=== PATIENT | male | born 1940 | race Caucasian/White ===

== ENCOUNTER 2017-10-20 09:46 | Inpatient (IN) | payer OTHER ==
[2017-10-20] MEDS ORDERED: ASPIRIN 81 MG CHEWABLE TABLET ONE (10:43)
--- NOTE | 2017-10-20 11:07 | RAD REPORT ---
EXAM DESCRIPTION: RAD - Chest Single View - 10/20/2017 10:51 am CLINICAL HISTORY: Chest pain. COMPARISON: 11/14/2016 FINDINGS: Portable technique limits examination quality. The lungs are grossly clear. The heart is normal in size. No displaced fractures.Left-sided port cath eter its tip in the SVC. IMPRESSION: No acute intrathoracic process suspected.
[2017-10-20 11:11] LABS: Absolute Lymphocytes (CBC) 1.1 K/uL (0.7-4.9); Absolute Monocytes 0.8 K/uL (0.1-1.3); Absolute Neutrophil 6.9 K/uL (1.8-8.0); Basophils % 0.8 % (0-1.3); Eosinophils % 1.4 % (0-4.4); Hematocrit 42.2 % (39.6-49.0); MCH 29.6 pg (27.0-35.0); MCV 90.3 fL (80-100); MPV 9.4 fL (7.6-11.3); Monocytes % 9.1 % (3.3-12.3); RBC Red Blood Cell Count 4.67 M/uL (4.33-5.43)
[2017-10-20 11:23] LABS: Protime INR 1.19
[2017-10-20 11:37] LABS: CKMB Creatine Kinase MB 1.1 ng/ml (0.3-4.0); Potassium 4.6 mEq/L (3.6-5.0)
[2017-10-20 11:43] LABS: Albumin 3.4 g/dL (3.2-5.5); Bilirubin Direct 0.1 mg/dL (0-0.2); Bilirubin Total 0.7 mg/dL (0.3-1.2); Magnesium 1.7 mg/dL (1.8-2.5); Protein, Total 7.2 g/dL (6.0-8.3)
[2017-10-20] MEDS ORDERED: INSULIN -REGULAR HUMAN 50 UNIT/0.5 ML ML ONE (12:28)
--- NOTE | 2017-10-20 13:14 | ER ---
Nurse's Notes [facility] Name: Robb Pennington Age: 77 yrs Sex: Male : 1940 Arrival Date: 10/20/2017 Time: 09:48 Bed 8 Private MD: Diagnosis: Cellulitis of right lower limb;Open wound of foot;Hyperglycemia, unspecified;Chest pain, unspecified Presentation: 10/20 09:52 Presenting complaint: Patient states: Chest pain that started last night while patient aj was getting up and down to the bathroom with urinary frequency. Describes pain as "minor, it bugs me.". Transition of care: patient was not received from another setting of care. Onset of symptoms was October 20, 2017. Initial Sepsis Screen: Does the patient meet any 2 criteria? No. Patient's initial sepsis screen is negative. Does the patient have a suspected source of infection? No. Patient's initial sepsis screen is negative. Care prior to arrival: None. 09:52 Method Of Arrival: Wheelchair aj 09:52 Acuity: LUDA 3 aj Triage Assessment: 09:54 General: Appears in no apparent distress. comfortable, Behavior is calm, cooperative, aj appropriate for age. Pain: Complains of pain in chest. Neuro: Level of Consciousness is awake, alert, obeys commands, Oriented to person, place, time, situation, Appropriate for age. Cardiovascular: Reports chest pain. Respiratory: Airway is patent Respiratory effort is even, unlabored, Respiratory pattern is regular, symmetrical. : Reports urinary frequency. Derm: Skin is intact, is healthy with good turgor, Skin is pink, warm \\T\\ dry. normal. Historical: - Allergies: 09:54 pollen extracts; aj - Home Meds: 09:54 aspirin 325 mg Oral tab once daily [Active]; clopidogrel 75 mg Oral tab 1 tab once aj daily [Active]; Melatonin Oral [Active]; metoprolol tartrate 37.5 mg Oral tab 2 times per day [Active]; Novolog 100 unit/mL Sub-Q soln 6 unit three times a day [Active]; simvastatin 40 mg Oral tab 1 tab once daily [Active]; Tresiba FlexTouch U-100 100 unit/mL (3 mL) subcutaneous inpn 100 unit daily [Active]; - PMHx: 09:54 colon cancer; CVA; Diabetes - IDDM; Hyperlipidemia; Hypertension; TIA; aj - PSHx: 09:54 Appendectomy; Cholecystectomy; colon cancer; aj - Immunization history:: Adult Immunizations up to date. - Social history:: Smoking status: Patient/guardian denies using tobacco. Screenin:00 Abuse screen: Denies threats or abuse. Denies injuries from another. Nutritional hb screening: No deficits noted. Tuberculosis screening: No symptoms or risk factors identified. Fall Risk Total Chow Fall Scale indicates Low Risk Score (25-44 pts). Fall prevention measures have been instituted. Side Rails Up X 2 Frequent Obs/Assesments occuring Family Present and informed to notify staff if they need to leave bedside As available Patient and Family Educated on Fall Prevention Program and strategies. Assessment: 09:55 General: see triage assessment. hb 10:15 Derm: Skin temperature is hot Wound noted Wound is s/s of infection noted, with redness sg extending up the right leg. 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 10:45 Reassessment: Patient appears in no apparent distress at this time. No changes from hb previously documented assessment. Patient and/or family updated on plan of care and expected duration. Pain level reassessed. Patient is alert, oriented x 3, equal unlabored respirations, skin warm/dry/pink. 11:30 Reassessment: Patient appears in no apparent distress at this time. No changes from hb previously documented assessment. Patient and/or family updated on plan of care and expected duration. Pain level reassessed. Patient is alert, oriented x 3, equal unlabored respirations, skin warm/dry/pink. 12:30 Reassessment: Patient appears in no apparent distress at this time. No changes from hb previously documented assessment. Patient and/or family updated on plan of care and expected duration. Pain level reassessed. Patient is alert, oriented x 3, equal unlabored respirations, skin warm/dry/pink. 13:30 Reassessment: Patient appears in no apparent distress at this time. No changes from hb previously documented assessment. Patient and/or family updated on plan of care and expected duration. Pain level reassessed. Patient is alert, oriented x 3, equal unlabored respirations, skin warm/dry/pink. 14:30 Reassessment: Patient appears in no apparent distress at this time. No changes from hb previously documented assessment. Patient and/or family updated on plan of care and expected duration. Pain level reassessed. Patient is alert, oriented x 3, equal unlabored respirations, skin warm/dry/pink. 15:30 Reassessment: Patient appears in no apparent distress at this time. No changes from hb previously documented assessment. Patient and/or family updated on plan of care and expected duration. Pain level reassessed. Patient is alert, oriented x 3, equal unlabored respirations, skin warm/dry/pink. 16:15 Reassessment: Patient appears in no apparent distress at this time. No changes from hb previously documented assessment. Patient and/or family updated on plan of care and expected duration. Pain level reassessed. Patient is alert, oriented x 3, equal unlabored respirations, skin warm/dry/pink. Vital Signs: 09:54 BP 150 / 71; Pulse 108; Resp 22; Temp 99.0; Pulse Ox 96% on R/A; Weight 117.93 kg; aj Height 6 ft. 2 in. (187.96 cm); 11:25 BP 161 / 67; Pulse 90; Resp 21; Pulse Ox 97% on 2 lpm NC; hb 13:00 BP 158 / 88; Pulse 84; Resp 18; Pulse Ox 96% on 2 lpm NC; hb 14:00 BP 132 / 76; Pulse 88; Resp 15; Pulse Ox 97% on 2 lpm NC; hb 15:00 BP 146 / 86; Pulse 86; Resp 15; Pulse Ox 100% on 2 lpm NC; hb 16:00 BP 156 / 86; Pulse 88; Resp 20; Pulse Ox 97% 2 lpm ; hb 09:54 Body Mass Index 33.38 (117.93 kg, 187.96 cm) aj ED Course: 09:48 Patient arrived in ED. sb2 09:53 Triage completed. aj 09:54 Arm band placed on right wrist. Patient placed in an exam room. aj 09:59 Carolyn Banegas FNP-C is PHCP. kb 09:59 Raymon Peña MD is Attending Physician. kb 10:00 Patient has correct armband on for positive identification. Placed in gown. Bed in low hb position. Call light in reach. Side rails up X 1. cofounder on. Pulse ox on. NIBP on. 10:00 Oxygen administration via nasal cannula \\T\\ 2L/min. hb 10:29 Alfred Nazario, RN is Primary Nurse. sg 10:36 EKG done, by waste management recycling technician. reviewed by Raymon Peña MD. dt2 10:52 XRAY Chest (1 view) In Process Unspecified. EDMS 13:13 Epi Hrading MD is Hospitalizing Provider. kb 13:39 Wound Culture Sent. hb 14:58 No provider procedures requiring assistance completed. Patient admitted, IV remains in hb place. 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 kb 14:58 Admitted to Med/surg accompanied by tech, via stretcher, room 215, with chart, Report hb called to SUSSY Lawrence 14:58 Condition: stable 14:58 Instructed on the need for admit, Demonstrated understanding of instructions. 16:24 Patient left the ED. sg Signatures: Dispatcher [employer] EDMS Carolyn Banegas, DIRECTOR OF CARDIAC REHABILITATION-C DIRECTOR OF CARDIAC REHABILITATION-Ckb Alfred Nazario, RN SUSSY Rosario Vasquez RN RN aj Baxter, Heather, RN RN Jeniffer Gomes sb2 Julia Ya dt2 Catherine Adkins RN
--- NOTE | 2017-10-20 13:14 | EDPHYS ---
Physician Documentation [facility] Name: Robb Pennington Age: 77 yrs Sex: Male : 1940 Arrival Date: 10/20/2017 Time: 09:48 Bed 8 Private MD: ED Physician Raymon Peña HPI: 10/20 10:03 This 77 yrs old Male presents to ER via Wheelchair with complaints of Chest kb Pain. 10:07 The patient or guardian reports chest pain that is located primarily in the substernal kb area. Onset: last night. The pain does not radiate. Associated signs and symptoms: Pertinent positives: shortness of breath, Pertinent negatives: abdominal pain, cough, diaphoresis, dizziness, headache, lower extremity pain, lower extremity swelling, lightheadedness, nausea, near syncope, palpitations, recent travel, syncope, vomiting. The chest pain is described as aching. Duration: The patient or guardian reports a single episode, that is now resolved. Modifying factors: The symptoms are alleviated by nothing. the symptoms are aggravated by nothing. Severity of pain: At its worst the pain was moderate in the emergency department the pain is unchanged. The patient has experienced similar episodes in the past, a few times. The patient has not recently seen a physician. Historical: - Allergies: 09:54 pollen extracts; aj - Home Meds: 09:54 aspirin 325 mg Oral tab once daily [Active]; clopidogrel 75 mg Oral tab 1 tab once aj daily [Active]; Melatonin Oral [Active]; metoprolol tartrate 37.5 mg Oral tab 2 times per day [Active]; Novolog 100 unit/mL Sub-Q soln 6 unit three times a day [Active]; simvastatin 40 mg Oral tab 1 tab once daily [Active]; Tresiba FlexTouch U-100 100 unit/mL (3 mL) subcutaneous inpn 100 unit daily [Active]; - PMHx: 09:54 colon cancer; CVA; Diabetes - IDDM; Hyperlipidemia; Hypertension; TIA; aj - PSHx: 09:54 Appendectomy; Cholecystectomy; colon cancer; aj - Immunization history:: Adult Immunizations up to date. - Social history:: Smoking status: Patient/guardian denies using tobacco. ROS: 10:04 Constitutional: Negative for fever, chills, and weight loss, ENT: Negative for injury, kb pain, and discharge, Neck: Negative for injury, pain, and swelling, Abdomen/GI: Negative for abdominal pain, nausea, vomiting, diarrhea, and constipation, Back: Negative for injury and pain, : Negative for injury, bleeding, discharge, and swelling, MS/Extremity: Negative for injury and deformity, Skin: Negative for injury, rash, and discoloration, Neuro: Negative for headache, weakness, numbness, tingling, and seizure. 10:04 Cardiovascular: Positive for chest pain, Negative for edema, orthopnea, palpitations, paroxysmal nocturnal dyspnea. 10:04 Respiratory: Positive for shortness of breath, Negative for cough, dyspnea on exertion, hemoptysis, orthopnea, pleurisy, sputum production, wheezing. Exam: 10:04 Constitutional: This is a well developed, well nourished patient who is awake, alert, kb and in no acute distress. Head/Face: Normocephalic, atraumatic. Chest/axilla: Normal chest wall appearance and motion. Nontender with no deformity. No lesions are appreciated. Cardiovascular: Regular rate and rhythm with a normal S1 and S2. No gallops, murmurs, or rubs. Normal PMI, no JVD. No pulse deficits. Respiratory: Lungs have equal breath sounds bilaterally, clear to auscultation and percussion. No rales, rhonchi or wheezes noted. No increased work of breathing, no retractions or nasal flaring. Abdomen/GI: Soft, non-tender, with normal bowel sounds. No distension or tympany. No guarding or rebound. No evidence of tenderness throughout. Back: No spinal tenderness. No costovertebral tenderness. Full range of motion. MS/ Extremity: Pulses equal, no cyanosis. Neurovascular intact. Full, normal range of motion. Neuro: Awake and alert, GCS 15, oriented to person, place, time, and situation. Cranial nerves II-XII grossly intact. Motor strength 5/5 in all extremities. Sensory grossly intact. Cerebellar exam normal. Normal gait. 12:38 Skin: cellulitis, that is moderate, on the right foot, open wound at bottom of right kb foot with purulent drainage. , lesion(s). Vital Signs: 09:54 BP 150 / 71; Pulse 108; Resp 22; Temp 99.0; Pulse Ox 96% on R/A; Weight 117.93 kg; aj Height 6 ft. 2 in. (187.96 cm); 11:25 BP 161 / 67; Pulse 90; Resp 21; Pulse Ox 97% on 2 lpm NC; hb 13:00 BP 158 / 88; Pulse 84; Resp 18; Pulse Ox 96% on 2 lpm NC; hb 14:00 BP 132 / 76; Pulse 88; Resp 15; Pulse Ox 97% on 2 lpm NC; hb 15:00 BP 146 / 86; Pulse 86; Resp 15; Pulse Ox 100% on 2 lpm NC; hb 16:00 BP 156 / 86; Pulse 88; Resp 20; Pulse Ox 97% 2 lpm ; hb 09:54 Body Mass Index 33.38 (117.93 kg, 187.96 cm) aj MDM: 09:59 Patient medically screened. kb 10:04 The patient was given aspirin in the Emergency Department. Data reviewed: vital signs, kb nurses notes. Data interpreted: Pulse oximetry: on room air is 96 %. Interpretation: normal. 12:29 Counseling: I had a detailed discussion with the patient and/or guardian regarding: the kb historical points, exam findings, and any diagnostic results supporting the discharge/admit diagnosis, lab results, radiology results, the need for further work-up and treatment in the hospital. Physician consultation: Epi Harding MD was called at 12:30, left voicemail and awaiting call back. 13:12 Physician consultation: Epi Harding MD was contacted at 13:12, regarding admission, kb to the telemetry unit. patient's condition, and will see patient in inpatient room. 10/20 10:03 Order name: LFT's; Complete Time: 11:46 kb 10/20 10:03 Order name: Basic Metabolic Panel; Complete Time: 11:46 kb 10/20 10:03 Order name: BNP; Complete Time: 11:37 kb 10/20 10:03 Order name: CBC with Diff; Complete Time: 11:28 kb 10/20 10:03 Order name: Ckmb; Complete Time: 11:46 kb 10/20 10:03 Order name: CPK; Complete Time: 11:46 kb 10/20 10:03 Order name: Magnesium; Complete Time: 11:46 kb 10/20 10:03 Order name: PT-INR; Complete Time: 11:37 kb 10/20 10:03 Order name: Ptt, Activated; Complete Time: 11:37 kb 10/20 10:03 Order name: Troponin (emerg Dept Use Only); Complete Time: 11:37 kb 10/20 10:03 Order name: XRAY Chest (1 view); Complete Time: 11:18 kb 10/20 12:38 Order name: Blood Culture Adult (2) kb 10/20 12:38 Order name: Wound Culture kb 10/20 12:47 Order name: Urine Dipstick--Ancillary (enter results); Complete Time: 16:05 bd 10/20 10:03 Order name: EKG; Complete Time: 10:04 kb 10/20 10:03 Order name: Cardiac monitoring; Complete Time: 10:52 kb 10/20 10:03 Order name: EKG - Nurse/Tech; Complete Time: 13:24 kb 10/20 10:03 Order name: IV Saline Lock; Complete Time: 10:53 kb 10/20 10:03 Order name: Labs collected and sent; Complete Time: 10:53 kb 10/20 10:03 Order name: O2 Per Protocol; Complete Time: 10:53 kb 10/20 10:03 Order name: O2 Sat Monitoring; Complete Time: 10:53 kb 10/20 10:03 Order name: Urine Dipstick-Ancillary (obtain specimen); Complete Time: 13:24 kb 10/20 12:59 Order name: Diet Ada 1800 Serafin; Complete Time: 12:59 bd 10/20 13:12 Order name: Foot Right 3 View XRAY kb 10/20 14:14 Order name: RAD; Complete Time: 14:15 EDMS Administered Medications: 10:52 Not Given (Patient Refused; pt 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 taking 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, w/plavix): Aspirin Chewable sg Tablet 324 mg PO once; 81 mg tablets x 4 12:31 Drug: Insulin Regular Human 10 units {Co-Signature: hb (Catherine Adkins RN).} Route: sg IVP; Site: right antecubital; 13:10 Drug: Zosyn 3.375 grams Route: IVPB; Infused Over: 60 mins; Site: right antecubital; hb 14:10 Follow up: Response: No adverse reaction; IV Status: Completed infusion hb 14:23 Drug: vancoMYCIN 1 grams Route: IVPB; Infused Over: 2 hrs; Site: right antecubital; hb Disposition: 10/21 10:53 Co-signature as Attending Physician, Raymon Peña MD I agree with the assessment and [facility] plan of care. Disposition: 10/20/17 13:14 Hospitalization ordered by Epi Harding for Inpatient Admission. Preliminary diagnosis are Cellulitis of right lower limb, Open wound of foot, Hyperglycemia, unspecified, Chest pain, unspecified. - Bed requested for Telemetry/MedSurg (Inpatient). - Status is Inpatient Admission. sg - Condition is Stable. - Problem is new. - Symptoms are unchanged. UTI on Admission? No Signatures: Dispatcher [employer] EDMS Carolyn Banegas, LUNCHROOM MOTHER-C LUNCHROOM MOTHER-Naya Carmichael RN Alfred Canas RN RN sg Myers, Amanda, RN RN aj Anderson, Corey, MD MD cha Baxter, Heather, RN RN Catherine pratt Corrections: (The following items were deleted from the chart) 10/20 10:08 10:07 The patient has not experienced similar symptoms in the past, kb kb 12:27 10:04 Constitutional: This is a well developed, well nourished patient who is awake, kb alert, and in no acute distress. Head/Face: Normocephalic, atraumatic. Chest/axilla: Normal chest wall appearance and motion. Nontender with no deformity. No lesions are appreciated. Cardiovascular: Regular rate and rhythm with a normal S1 and S2. No gallops, murmurs, or rubs. Normal PMI, no JVD. No pulse deficits. Respiratory: Lungs have equal breath sounds bilaterally, clear to auscultation and percussion. No rales, rhonchi or wheezes noted. No increased work of breathing, no retractions or nasal flaring. Abdomen/GI: Soft, non-tender, with normal bowel sounds. No distension or tympany. No guarding or rebound. No evidence of tenderness throughout. Back: No spinal tenderness. No costovertebral tenderness. Full range of motion. Skin: Warm, dry with normal turgor. Normal color with no rashes, no lesions, and no evidence of cellulitis. MS/ Extremity: Pulses equal, no cyanosis. Neurovascular intact. Full, normal range of motion. Neuro: Awake and alert, GCS 15, oriented to person, place, time, and situation. Cranial nerves II-XII grossly intact. Motor strength 5/5 in all extremities. Sensory grossly intact. Cerebellar exam normal. Normal gait. kb 13:23 13:14 Hospitalization Ordered by Epi Harding MD for Inpatient Admission. Preliminary dw diagnosis is Cellulitis of right lower limb; Open wound of foot; Hyperglycemia, unspecified; Chest pain, unspecified. Bed requested for Telemetry/MedSurg (Inpatient). Status is Inpatient Admission. Condition is Stable. Problem is new. Symptoms are unchanged. UTI on Admission? No. kb 16:24 13:23 10/20/2017 13:14 Hospitalization Ordered by Epi Harding MD for Inpatient sg Admission. Preliminary diagnosis is Cellulitis of right lower limb; Open wound of foot; Hyperglycemia, unspecified; Chest pain, unspecified. Bed requested for Telemetry/MedSurg (Inpatient). Status is Inpatient Admission. Condition is Stable. Problem is new. Symptoms are unchanged. UTI on Admission? No. dw
[2017-10-20] MEDS ORDERED: NS ONE (13:26)
[2017-10-20] MEDS ORDERED: VANCOMYCIN ONE (13:26)
[2017-10-20] MEDS ORDERED: PIPER/TAZO/NS 3.375gm 3.375 GM/100 ML BAG ONE (13:27)
--- NOTE | 2017-10-20 14:14 | RAD REPORT ---
EXAM DESCRIPTION: RAD - Foot Right 3 View - 10/20/2017 2:04 pm CLINICAL HISTORY: Foot pain and swelling. COMPARISON: 06/09/2018 FINDINGS: Amputation at the level of the first mid metatarsal is noted. The second toe amputation is also seen. Soft tissues are swollen in the region with soft tissue ulceration noted anteriorly. No r adiographic finding to indicate osteomyelitis. Small linear foreign bodies are seen in the soft tissu es of the lateral anterior foot. Calcaneal spurs are present. IMPRESSION: No radiographic abnormality to indicate osteomyelitis.
[2017-10-20] MEDS ORDERED: VANCOMYCIN/NS 1 gm 1 GM/250 ML BAG ONE (14:37)
[2017-10-20 15:50] LABS: Urine Blood NEGATIVE (NEG); Urine Glucose 3+ (NEG); Urine Protein NEGATIVE (NEG); Urine Specific Gravity <1.005 (1.005-1.030); Urine pH 5.5 (5.0-7.0)
[2017-10-20] MEDS ORDERED: GLUCAGON 1 MG/VIAL IM PRN (16:38)
[2017-10-20] MEDS ORDERED: D50W 25 GM/50 ML SYRINGE IV PRN (16:38)
[2017-10-20] MEDS: VANCOMYCIN/NS 1 gm 1 GM/250 ML BAG IVPB ONE ×2 (16:38→18:00)
[2017-10-20] MEDS ORDERED: ACETAMINOPHEN 500 MG TAB PO PRN (16:38)
[2017-10-20 16:48] VITALS: BMI 34.0
[2017-10-20] MEDS: PIPER/TAZO/NS 3.375gm 3.375 GM/100 ML BAG IVPB SCH ×2 (17:30→17:42)
[2017-10-20] MEDS: INSULIN -REGULAR HUMAN 50 UNIT/0.5 ML ML SQ SCH ×2 (17:54→21:11)
[2017-10-20 17:59] LABS: Urine Appearance CLEAR; Urine Bilirubin NEGATIVE (NEG); Urine Blood NEGATIVE (NEG); Urine Color YELLOW; Urine Glucose 3+ (NEG); Urine Protein NEGATIVE (NEG); Urine Specific Gravity >=1.030 (1.005-1.030); Urine Urobilinogen 0.2 mg/dL (0.2-1.0); Urine pH 5.5 (5.0-7.0)
[2017-10-20 18:09] LABS: Urine Microscopic Reflex ORDER UMIC
[2017-10-20 18:41] LABS: Urine Bacteria <20 /HPF (NONE SEEN); Urine Culture Reflex Order REFLEXED; Urine RBC <5 /HPF (NONE SEEN)
[2017-10-20] MEDS ORDERED: HOME MED 1 EA UNK (Simvastatin [Simvastatin] 40 MG) PO SCH (21:00)
[2017-10-20] MEDS: ATORVASTATIN 20 MG TAB PO SCH (21:10)
[2017-10-20] MEDS: GABAPENTIN 300 MG CAP PO SCH (21:11)
[2017-10-20] MEDS: SERTRALINE HCL 50 MG TAB PO SCH (21:11)
[2017-10-20] MEDS: METOPROLOL TAR 25 MG TAB PO SCH (21:11)
[2017-10-21] MEDS: PIPER/TAZO/NS 3.375gm 3.375 GM/100 ML BAG IVPB SCH ×3 (01:05→16:42)
--- NOTE | 2017-10-21 04:50 | HP ---
Date of Admission: 10/20/2017 History Of Present Illness: A 77-year-old male with history of type 2 diabetes mellitus along with c hronic medical illnesses, came to emergency room complaining of started having chest pain, substernal , no radiation, described as chest ache associated with minimal shortness of breath. The pain was pe rsistent with the patient. He said it has been there until he came to emergency room. The patient h ad no nausea, no vomiting, no palpitation, no dizziness. Voiced no other complaints. Review of Systems: Cardiovascular: Above chest pain atypical. Otherwise, no complaint. Respiratory: Mild shortness of breath as above. Otherwise, no complaint. GENITOURINARY: No complaint. SKELETOMUSCULAR: No complaint. GASTROINTESTINAL: No complaint. NEUROLOGICAL: No complaint. Past Medical History: 1.Type 2 diabetes. 2.Hypertension. 3.History of CVA. No neurological sequelae. 4.Hyperlipidemia. 5.History of colon cancer. 6.Appendectomy and cholecystectomy. Social History: No smoking, alcohol, or drug abuse history. Family History: Noncontributing. Medications: Include NovoLog 8 units subcutaneous t.i.d., aspirin 325 mg p.o. daily, Plavix 75 mg p. o. daily, gabapentin 600 mg p.o. q.h.s., Tresiba FlexPen 100 units subcutaneous daily, metoprolol 25 mg p.o. b.i.d., multivitamins, Zoloft 25 mg p.o. q.h.s., simvastatin 40 mg p.o. q.h.s. Allergies: POLLEN EXTRACTS. Physical Examination: Vital Signs: Blood pressure 155/65, pulse 82, temperature of 99. Heart: Regular rate and rhythm. Chest: Clear to auscultation. Abdomen: Soft, benign, nontender. No hepatosplenomegaly. Bowel sounds are normoactive. Neurological: Alert, oriented, nonfocal, grossly intact. Extremities: No edema, no cyanosis. Right foot skin shows open wound the plantar surface with some purulent discharge and erythema. Laboratory Data: White cell count 9, neutrophils 76.7, lymphocytes 12, rest nonrevealing. Sodium 13 4, BUN 29, creatinine 1.75, blood glucose 586, dropped to 381. Rapid troponin less than 0.034%. Uri nalysis showed glucose positive. Assessment/plan: 1.Chest pain and patient risk for cardiovascular disease. He also sees Dr. Huston, being put on te lemetry. We will monitor his heart. An EKG which is sinus rhythm and I have asked Dr. Huston consu lt on that. 2.Cellulitis the right foot. The patient has been put on vancomycin and Zosyn IV. 3.Uncontrolled diabetes type 2. We will continue his Tresiba home medication. We will put him on r egular insulin sliding scale. We will monitor his blood sugar before wound culture and blood culture s sent. The patient on room air his oxygen saturation is 97%. His foot x-ray showed no evidence of osteomyelitis and his chest x-ray showed no acute intrathoracic process. Look orders for details. MFS/MODL Voice ID: [id number]
[2017-10-21 06:00] LABS: Absolute Lymphocytes (CBC) 1.5 K/uL (0.7-4.9); Absolute Monocytes 0.8 K/uL (0.1-1.3); Basophils % 1.1 % (0-1.3); Eosinophils % 2.6 % (0-4.4); Hematocrit 39.7 % (39.6-49.0); Lymphocytes % 22.8 % (15.3-44.8); MCH 29.7 pg (27.0-35.0); MCV 88.8 fL (80-100); Monocytes % 12.4 % (3.3-12.3); RBC Red Blood Cell Count 4.47 M/uL (4.33-5.43)
[2017-10-21 06:09] LABS: Potassium 4.3 mEq/L (3.6-5.0)
[2017-10-21] MEDS: INSULIN DEGLUDEC 100 UNIT SQ SCH ×3 (07:30→16:30)
[2017-10-21] MEDS: INSULIN -REGULAR HUMAN 50 UNIT/0.5 ML ML SQ SCH ×4 (07:30→21:01)
[2017-10-21] MEDS: CLOPIDOGREL 75 MG TABLET PO SCH (08:34)
[2017-10-21] MEDS: METOPROLOL TAR 25 MG TAB PO SCH ×2 (08:34→21:00)
[2017-10-21] MEDS: ASPIRIN 325 MG TAB PO SCH (08:34)
[2017-10-21] MEDS: MULTIVITAMIN TAB PO SCH (08:35)
[2017-10-21] MEDS ORDERED: HOME MED 1 EA UNK (Multivitamin [Multivitamins] 1 EACH) PO SCH (09:00)
[2017-10-21] MEDS ORDERED: ASPIRIN EC 81 MG TAB PO SCH (09:00)
--- NOTE | 2017-10-21 10:33 | EKG ---
Test Date: 2017-10-20 Test Time: 10:07:42 Construction Rep: DT/A MEASUREMENT RESULTS: Intervals: Rate: 104 [place]: 202 QRSD: 96 QT: 334 QTc: 439 [place]: P: 66 [place]: 202 QRS: 269 T: 66 INTERPRETIVE STATEMENTS: Sinus tachycardia Right superior axis deviation Pulmonary disease pattern Right ventricular hypertrophy Abnormal ECG Compared to ECG 11/15/2016 07:15:03 Right superior axis now present Right ventricular hypertrophy now present Sinus rhythm no longer present First degree AV block no longer present Left-axis deviation no longer present Electronically Signed On 10-21-17 10:27:41 CDT by Jimi Huston
--- NOTE | 2017-10-21 15:50 | EKG ---
Test Date: 2017-10-21 Test Time: 10:50:08 Rn Admit: VH/T MEASUREMENT RESULTS: Intervals: Rate: 82 [place]: 208 QRSD: 98 QT: 386 QTc: 450 [place]: P: 69 [place]: 208 QRS: -62 T: 70 INTERPRETIVE STATEMENTS: Normal sinus rhythm Left axis deviation Abnormal ECG Compared to ECG 10/20/2017 10:07:42 Left-axis deviation now present Sinus tachycardia no longer present Right superior axis no longer present Right ventricular hypertrophy no longer present Electronically Signed On 10-21-17 15:49:04 CDT by Jairo Napier
[2017-10-21] MEDS: GABAPENTIN 300 MG CAP PO SCH (16:41)
--- NOTE | 2017-10-21 17:25 | PN ---
Subjective: The patient has no new complaints. He has no chest pain anymore. Objective: Vital signs: Blood pressure 124/75, pulse 59, and temperature 98.7. Heart: Regular rate and rhythm. Chest: Clear to auscultation. Abdomen: Soft, benign. Neurologic: Alert, oriented. Grossly intact. Extremities: Right foot examination no change, cellulite. Laboratory Data: Microbiology is still pending. Hemoglobin 13.3, hematocrit 39.7, and platelets 213 . Chemistry; BUN 24, creatinine 1.65. Blood sugar, fingersticks noted. Assessment And Plan: 1.Right foot cellulitis. We will continue current antibiotics guided by the results of culture and sensitivity when they came out. 2.Acute renal failure on top of chronic, improving. 3.Chest pain, resolved. Pending Dr. Huston's input. Cardiac enzymes were negative. 4.Type 2 diabetes mellitus. We will continue current treatment and monitoring and sliding scale. Look orders for details. MFS/MODL Voice ID: [id number] Report ID: [id number]
[2017-10-21] MEDS ORDERED: VANCOMYCIN 2 GM in NA CHLORIDE 0.9% 500 ML IVPB SCH (18:00)
[2017-10-21] MEDS: SERTRALINE HCL 50 MG TAB PO SCH (21:00)
[2017-10-21] MEDS: ATORVASTATIN 20 MG TAB PO SCH (21:00)
[2017-10-21 21:11] VITALS: O2SAT 98
[2017-10-22] MEDS: PIPER/TAZO/NS 3.375gm 3.375 GM/100 ML BAG IVPB SCH ×2 (00:38→08:35)
[2017-10-22 05:13] LABS: Absolute Lymphocytes (CBC) 1.6 K/uL (0.7-4.9); Absolute Monocytes 0.6 K/uL (0.1-1.3); Absolute Neutrophil 2.9 K/uL (1.8-8.0); Basophils % 1.3 % (0-1.3); Eosinophils % 4.8 % (0-4.4); Hematocrit 40.7 % (39.6-49.0); Lymphocytes % 29.7 % (15.3-44.8); MCH 29.4 pg (27.0-35.0); MCV 88.8 fL (80-100); MPV 8.9 fL (7.6-11.3); Monocytes % 11.6 % (3.3-12.3); RBC Red Blood Cell Count 4.58 M/uL (4.33-5.43)
[2017-10-22 05:43] LABS: Potassium 4.6 mEq/L (3.6-5.0)
[2017-10-22] MEDS: INSULIN DEGLUDEC 100 UNIT SQ SCH ×3 (07:30→16:23)
[2017-10-22] MEDS: INSULIN -REGULAR HUMAN 50 UNIT/0.5 ML ML SQ SCH ×3 (08:33→16:24)
[2017-10-22] MEDS: METOPROLOL TAR 25 MG TAB PO SCH (08:34)
[2017-10-22] MEDS: CLOPIDOGREL 75 MG TABLET PO SCH (08:34)
[2017-10-22] MEDS: ASPIRIN 325 MG TAB PO SCH (08:34)
[2017-10-22] MEDS: MULTIVITAMIN TAB PO SCH (08:34)
--- NOTE | 2017-10-22 12:34 | PN ---
Date of Progress Note: 10/22/2017 Mr. Pennington was seen on 10/21/2017 because of unstable angina. Beta deny increase was recommended. He is on aspirin and Plavix. Blood pressure is improved. No cardiac symptoms today. Telemetry sh owed no changes. Cellulitis have improved. No plan for heart catheterization because of renal insuf ficiency and the fact that his angina is stable, and has been rather chronic. Diabetes is being cont rolled by Dr. Harding. I will sign off his case, I will be available for questions. He can go home whenever Dr. Harding approves. ISAURA/YASMANI Voice ID: [id number] Report ID: [id number]
[2017-10-22 17:48] VITALS: BP 154/73; TEMP 98.1
--- NOTE | 2017-10-24 11:42 | CON ---
Date of Consultation: 10/21/2017 I saw the patient on 10/21/2017. Reason For Consultation: Chest pain, cellulitis, and shortness of breath. History Of Present Illness: Mr. Pennington is 77. He has a history of colon cancer in the past. He has a history of coronary artery disease status post stent. He has a history of obesity that has impro ed, history of CVA, diabetes, hypertension, dyslipidemia. He came in with 1 episode of chest pain an d shortness of breath. He was found to have right foot cellulitis. He was admitted for treatment fo r that. He was hypertensive with the blood pressure of 193 when he came in. He has a negative tropo shubham, CPK-MB and BNP. He had a creatinine of 1.75 and a blood glucose level was 586. His chest pain episode was consistent with his stable angina symptoms that he has had before. He is asym ptomatic right now. He denied PND, orthopnea, pedal edema, palpitations, or syncope. Allergies: NONE. Review of Systems: Negative. Social History: Negative. Family History: Noncontributory. Medications: At home include aspirin, Plavix, metoprolol, Zocor. Physical Examination: General: He looks pleasant as usual, no acute distress. Vital Signs: Stable, afebrile. His blood pressure was 193, initially was 140 when I saw him. His w eight is 264 but has much improved . HEENT: Negative. Neck: Supple. No bruit, JVD, or thyromegaly. Chest: Clear to auscultation and percussion. Cardiac: Revealed a regular rhythm and rate without any murmurs, gallops, or rubs. Abdomen: Obese and benign. Extremities: Revealed right foot cellulitis. Diagnostic Data: As stated earlier, chest x-ray is negative. Impression And Plan: 1.Stable angina. Cared for Mr. Pennington for over 20 years and with the last 2 to 3 years he has had a t least 1 normal stress test and continued to have stable angina and has been very hesitant _ catheterization. I personally agree with them at this point. I would like to increase his beta-bl ocker dose. His creatinine is 1.75 and he is said to be high risk of renal failure from angiography. 2.Blood glucose of 586, poorly controlled diabetes. 3.Cellulitis, on antibiotics. 4.Dyslipidemia, on Zocor. 5.Hypertension, poorly controlled. Hopefully, the beta deny will help with his blood pressure an d his angina. I will continue to follow him. ISAURA/YASMANI Voice ID: [id number] Report ID: [id number]
--- NOTE | 2018-01-13 15:58 | DS ---
Date of Discharge: 10/22/2017 History Of Present Illness: A 77-year-old male with type 2 diabetes, presented to the emergency room with chest pain in the substernal area without radiation. He had shortness of breath and admitted h im for that. Past Medical History: As per admit note. Social History: As per admit note. Family History: As per admit note. Medications: As per admit note. Allergies: PER ADMIT NOTE. Physical Examination: As per admit note. Diagnostic Data: As per admit note. Hospital Course: The patient was admitted to the hospital and Dr. Huston, Cardiology was consulted. Serial cardiac enzymes were drawn and also he had cellulitis of the right foot for which he was put on IV Zosyn and vancomycin and we put him on his home medications and sliding scale for blood sugar fingersticks monitoring. Cardiology seen the patient, thought that he has unstable angina for the pa st 2-3 years. Increased his beta-deny dose. No further evaluation or angiography because he was high risk from the standpoint of chronic insufficiency. The patient did well and his chest pain reso lved. The patient for his cellulitis was thought to be put on Augmentin antibiotic and to follow up with me and with Cardiology, and he is stable to be discharged to continue his home medications and a spirin and Plavix and metoprolol 25 mg p.o. b.i.d. along with the rest of his home medications. Look discha e orders for details. MFS/MODL Voice ID: [id number] Report ID: [id number]
== END 2017-10-22 17:09 | disposition home health service (06) | DRG 311 ==
LOC: ER 09:46 → ERHOLD 12:43 → 2ND 15:24
PROVIDERS: ADMIT Internal Medicine; ATTEND Internal Medicine
DX: I20.0 Unstable angina (principal); L03.115 Cellulitis of right lower limb; N17.9 Acute kidney failure, unspecified; I10 Essential (primary) hypertension; E78.5 Hyperlipidemia, unspecified; E11.65 Type 2 diabetes mellitus with hyperglycemia; Z85.038 Personal history of other malignant neoplasm of large intestine; Z86.73 Personal history of transient ischemic attack (TIA), and cerebral infarction without residual deficits
CPT/HCPCS: 36415; 71045; 80048; 80076; 81003; 81015; 82550; 82553; 82962; 83735; 83880; 84484; 85025; 85610; 85730; 87040; 87070; 87077; 87086; 87088; 87186; 87205; 93005; 96365; 96375; 99285; J2543; J3370

== ENCOUNTER 2018-10-28 00:49 | Inpatient (IN) | payer OTHER ==
--- OUTSIDE RECORDS SUMMARY | 2018-10-28 00:52 | XMS REPORT | Clinical Summary ---
:1940 Author Organization [facility] Address [address] [place] [address] Care Team Providers Name Role Phone Epi Harding MD Primary Care Provider Allergies No Known Allergies Medications Medication Sig Dispensed Refills Start Date End Date Status aspirin (ECOTRIN) Take 81 mg by 0 Active 81 MG enteric mouth daily. coated tablet simvastatin (ZOCOR) Take 80 mg by 0 Active 80 MG tablet mouth nightly. metoprolol tartrate Take 25 mg by 0 Active (LOPRESSOR) 25 mg mouth 2 (two) tablet times a day. FIBER, DEXTRIN, Take by 0 Active ORAL mouth. gabapentin TK 1 C PO QHS 0 09/22/2018 Active (NEURONTIN) 300 mg capsule L.acid/B.bifidum/B. Take by 0 Active animal/FOS mouth. (PROBIOTIC COMPLEX ORAL) sertraline (ZOLOFT) Take 25 mg by 0 Active 25 MG tablet mouth daily. clopidogrel Take 75 mg by 0 Active (PLAVIX) 75 mg mouth daily. tablet multivitamin with Take 1 tablet 0 Active minerals tablet by mouth daily. ascorbic acid, Take 500 mg 0 Active vitamin C, (VITAMIN by mouth C) 500 MG tablet daily. cetirizine (ZyrTEC) Take 10 mg by 0 Active 10 MG tablet mouth daily. docusate sodium Take by 0 Active (STOOL SOFTENER mouth. ORAL) insulin ASPART Inject 16 45 mL 1 10/16/2018 Active (NovoLOG Flexpen Units under U-100 Insulin) 100 the skin 3 unit/mL (3 mL) (three) times insulin a day before penIndications: meals. Uncontrolled type 2 diabetes mellitus with circulatory disorder, with long-term current use of insulin (HCC) insulin degludec Inject 0.5 mL 45 mL 1 10/16/2018 Active (TRESIBA FLEXTOUCH (50 Units U-100) 100 unit/mL total) under (3 mL) insulin the skin penIndications: daily. Uncontrolled type 2 diabetes mellitus with circulatory disorder, with long-term current use of insulin ([facility]) insulin aspart Inject 8 0 10/16/2018 Discontinued (NOVOLOG FLEXPEN Units/L under U-100 INSULIN SUBQ) the skin 3 (three) times a day before meals. insulin degludec Inject 100 0 10/16/2018 Discontinued (TRESIBA FLEXTOUCH Units under U-100 SUBQ) the skin. Active Problems Not on file Encounters Date Type Specialty Care Team Description 10/16/2018 Lab Lab Hemanth Serrano, Hypertension associated with diabetes ([facility]) (Primary Dx); Type II diabetes mellitus with hyperosmolarity, uncontrolled ([facility]); Encounter for long-term (current) use of insulin ([facility]) 10/16/2018 Office Visit Endocrinology Hemanth Serrano, Uncontrolled type 2 diabetes mellitus with circulatory disorder, with long-term current use of insulin ([facility]) (Primary Dx); Benign essential hypertension; Mixed hyperlipidemia; Coronary artery disease involving chilkoot coronary artery of chilkoot heart with angina pectoris ([facility]); PAD (peripheral artery disease) ([facility]) after 10/27/2017 Family History Medical History Relation Name Comments Diabetes Father Diabetes Mother Relation Name Status Comments Father Mother Social History Tobacco Use Types Packs/Day Years Used Date Former Smoker Smokeless Tobacco: Never Used Alcohol Use Drinks/Week oz/Week Comments Yes rare consumption Alcohol Habits Answer Date Recorded How often do you have a drink containing alcohol? Never 10/16/2018 How many drinks containing alcohol do you have on a typical Not asked day when you are drinking? How often do you have six or more drinks on one occasion? Not asked Sex Assigned at Date Recorded Not on file Job Start Date Occupation Industry Not on file Not on file Not on file Travel History Travel Start Travel End No recent travel history available. Last Filed Vital Signs Vital Sign Reading Time Taken Blood Pressure 116/74 10/16/2018 3:24 PM CDT Pulse 78 10/16/2018 3:24 PM CDT Temperature - - Respiratory Rate 20 10/16/2018 3:24 PM CDT Oxygen Saturation 95% 10/16/2018 3:24 PM CDT Inhaled Oxygen Concentration - - Weight 116 kg (256 lb) 10/16/2018 3:24 PM CDT Height 188 cm (6' 2") 10/16/2018 3:24 PM CDT Body Mass Index 32.87 10/16/2018 3:24 PM CDT Plan of Treatment Date Type Specialty Care Team Description 11/20/2018 Office Visit Endocrinology Hemanth Serrano MD [address] [facility] [address] [place], [place] [id number] Health Maintenance Due Date Last Done Comments DIABETIC RETINAL EYE EXAM 1940 DIABETIC FOOT EXAM 1950 SHINGLES VACCINES (#1) 1990 65+ PNEUMOCOCCAL VACCINE (1 of 2 - PCV13) 2005 PNEUMOCOCCAL POLYSACCHARIDE VACCINE AGE 65 AND OVER 2005 INFLUENZA VACCINE 01/11/2019 Procedures Procedure Name Priority Date/Time Associated Diagnosis Comments ESTIMATED GFR Routine 10/16/2018 4:55 Results for this PM CDT procedure are in the results section. CBC HEMOGRAM Routine 10/16/2018 4:55 Hypertension Results for this PM CDT associated with procedure are in diabetes ([facility]) the results Type II diabetes section. mellitus with hyperosmolarity, uncontrolled ([facility]) Encounter for long-term (current) use of insulin ([facility]) LIPID PANEL Routine 10/16/2018 4:55 Hypertension Results for this PM CDT associated with procedure are in diabetes ([facility]) the results Type II diabetes section. mellitus with hyperosmolarity, uncontrolled ([facility]) Encounter for long-term (current) use of insulin ([facility]) COMPREHENSIVE Routine 10/16/2018 4:55 Hypertension Results for this METABOLIC PANEL PM CDT associated with procedure are in diabetes ([facility]) the results Type II diabetes section. mellitus with hyperosmolarity, uncontrolled ([facility]) Encounter for long-term (current) use of insulin ([facility]) HEMOGLOBIN A1C Routine 10/16/2018 4:55 Hypertension Results for this PM CDT associated with procedure are in diabetes ([facility]) the results Type II diabetes section. mellitus with hyperosmolarity, uncontrolled ([facility]) Encounter for long-term (current) use of insulin ([facility]) after 10/27/2017 Results Estimated GFR (10/16/2018 4:55 PM CDT) Estimated GFR 40 (A) mL/min/1.73 m2 [facility] Comment: HOSPITAL CatergoryUnitsInterpretation G1 >=90 Normal or high G2 60-89Mildly decreased Q5a34-59Hycyvj to moderately decreased [id number] to severely decreased G4 15-29Severely decreased G5 <15Kidney failure The eGFR was calculated using the Chronic Kidney Disease Epidemiology Collaboration (CKD-EPI) equation. Interpretation is based on recommendations of the National Kidney Foundation-Kidney Disease Outcomes Quality Initiative (NKF-KDOQI) published in 2014. Specimen Plasma specimen Performing Organization Address City/[facility]/Zipcode Phone Number [facility] DEPARTMENT OF PATHOLOGY AND [address] [place] [address] [address] CBC hemogram (10/16/2018 4:55 PM CDT) WBC 7.26 4.50 - 11.00 k/uL [facility] RBC 5.13 4.40 - 6.00 m/uL [facility] HGB 15.2 14.0 - 18.0 g/dL [facility] HCT 46.4 41.0 - 51.0 % [facility] MCV 90.4 82.0 - 100.0 fL [facility] MCH 29.6 27.0 - 34.0 pg [facility] MCHC 32.8 31.0 - 37.0 g/dL [facility] RDW - SD 41.6 37.0 - 55.0 fL [facility] MPV 10.6 8.8 - 13.2 fL [facility] Platelet count 214 150 - 400 k/uL [facility] Nucleated RBC 0.00 /100 WBC [facility] Specimen Blood Performing Organization Address City/State/Zipcode Phone Number [facility] DEPARTMENT OF PATHOLOGY AND [address] [place] [address] [address] Hemoglobin A1c (10/16/2018 4:55 PM CDT) Hemoglobin A1C 10.7 (H) 4.0 - 5.6 % [facility] Comment: HbA1c cutoffs for diagnosing diabetes: 4.0% - 5.6%=normal 5.7% - 6.4%=increased risk for diabetes (prediabetes) >=6.5%=diabetes Goals for glycemic control (ADA 2016) < 7.0%Target for non adults with diabetes. More or less stringent targets may be appropriate for individual patients. <7.5% Target for Children and adolescents with type 1 diabetes. Specimen Blood Performing Organization Address City/[facility] Cent[facility]ode Phone Number [facility] DEPARTMENT OF PATHOLOGY AND [address] [place] [address] [address] Lipid panel (10/16/2018 4:55 PM CDT) Cholesterol 136 <200 mg/dL [facility] Triglycerides 240 (H) <150 mg/dL [facility] HDL cholesterol 30 (L) >40 mg/dL [facility] LDL cholesterol 75Comment: Result obtained <100 mg/dL [facility] by direct LDL measurement [facility] Lipid panel interpretation SeeBelow [facility] Comment: HOSPITAL Total Cholesterol (mg/dL) <200 Desirable 693-799Gjxnhxkixo-kuls >=240High Triglycerides (mg/dL) <150 Normal 786-373Buhqumrmqe-uqav 200-499High >=500Very high HDL Cholesterol (mg/dL) <40Low (male) <40Low (female) LDL Cholesterol (mg/dL) <100 Optimal 100-129Near or above optimal 690-270Eiusjvlhsc-nvzi 160-189High >=190Very high Risk Catergories that modify LDL goals. Risk CatergoriesLDL goal (mg/dL) CHD and CHD risk equivalent<100 (10-year risk >20%) Multiple (2+) risk factors <130 (10-year risk=<20%) 0-1 risk factors <160 (<10-year risk) Defining levels of lipids in metabolic syndrome Triglycerides>=150 mg/dL HDL Cholesterol Men<40 mg/dL Women<40 mg/dL Non-HDL cholesterol is a second target for therapy in persons with high triglycerides (>=200 mg/dL) Specimen Plasma specimen Performing Organization Address City/State/Zipcode Phone Number [facility] DEPARTMENT OF PATHOLOGY AND [address] [place] [address] [address] Comprehensive metabolic panel (10/16/2018 4:55 PM CDT) Sodium 137 135 - 148 mEq/L [facility] Potassium 5.3 (H) 3.5 - 5.0 mEq/L [facility] Chloride 101 98 - 112 mEq/L [facility] CO2 25 24 - 31 mEq/L [facility] Anion gap 11@ANIO 7 - 15 mEq/L [facility] BUN 29 (H) 8 - 23 mg/dL [facility] Creatinine 1.61 (H) 0.70 - 1.20 mg/dL [facility] Glucose 286 (H) 65 - 99 mg/dL [facility] Calcium 9.6 8.8 - 10.2 mg/dL [facility] Protein 7.1 6.3 - 8.3 g/dL [facility] Comment: HOSPITAL Warren 4.6-7.0 g/dL 1 week 4.4-7.6 g/dL 7 months-1year5.1-7.3 g/dL 1-2 years5.6-7.5 g/dL >3 years6.0-8.0 g/dL 18-150 6.3-8.3 g/dL Albumin 3.3 (L) 3.5 - 5.0 g/dL [facility] A/G ratio 0.9 0.7 - 3.8 [facility] Alkaline phosphatase 82 40 - 129 U/L [facility] AST 22 10 - 50 U/L [facility] ALT 23 5 - 50 U/L [facility] Total bilirubin 0.5 0.0 - 1.2 mg/dL [facility] Specimen Plasma specimen Performing Organization Address City/State/Zipcode Phone Number [facility] DEPARTMENT OF PATHOLOGY AND [address] [place] [id number] [facility] [address] [address] after 10/27/2017 Insurance Payer Benefit Plan / Group Subscriber ID Type Phone Address [facility] xxxxxxxxx O Advance Directives Patient has advance care planning documents on file. For more information, please contact:[address] [facility] [place] [address]
[2018-10-28 01:23] LABS: Protime INR 1.04
[2018-10-28] MEDS ORDERED: MORPHINE 4 MG/ML SYR ONE (01:24)
[2018-10-28] MEDS ORDERED: ONDANSETRON 4 MG/2 ML VIAL ONE (01:24)
[2018-10-28 01:25] LABS: Absolute Lymphocytes (CBC) 3.3 K/uL (0.7-4.9); Absolute Monocytes 0.6 K/uL (0.1-1.3); Absolute Neutrophil 4.7 K/uL (1.8-8.0); Basophils % 1.1 % (0-1.3); Eosinophils % 3.5 % (0-4.4); Lymphocytes % 36.6 % (15.3-44.8); MPV 9.2 fL (7.6-11.3); Monocytes % 6.9 % (3.3-12.3)
[2018-10-28 01:45] LABS: ALT/SGPT 29 U/L (12-78); AST/SGOT 23 U/L (15-37); Albumin 3.4 g/dL (3.4-5.0); Alkaline Phosphatase 129 U/L (45-117); BUN Blood Urea Nitrogen 34 mg/dL (7-18); Bicarbonate 16 mmol/L (21-32); Bilirubin Direct 0.1 mg/dL (0-0.2); Bilirubin Total 0.5 mg/dL (0.2-1.0); Magnesium 1.8 mg/dL (1.8-2.4); NT PRO-BNP 67 pg/mL (<450); Potassium 4.8 mmol/L (3.5-5.1); Protein, Total 7.5 g/dL (6.4-8.2); Sodium Level 136 mmol/L (136-145); Troponin (Emerg Dept Use Only) < 0.02 ng/mL (0.0-0.045)
[2018-10-28 01:46] LABS: Glucose Level 435 mg/dL (74-106)
[2018-10-28] MEDS ORDERED: MORPHINE 2 MG/ML SYR ONE (01:59)
--- NOTE | 2018-10-28 02:54 | EDPHYS ---
Physician Documentation [facility] Name: Robb Pennington Age: 78 yrs Sex: Male : 1940 Arrival Date: 10/28/2018 Time: 00:51 Bed 3 Private MD: ED Physician Francisco Nickerson HPI: 10/28 02:22 This 78 yrs old Male presents to ER via EMS with complaints of Chest Pain. tw4 02:22 The patient or guardian reports chest pain that is located primarily in the anterior tw4 chest wall. Onset: today. The pain does not radiate. Associated signs and symptoms: The patient has no apparent associated signs or symptoms. The chest pain is described as dull. Duration: The patient or guardian reports a single episode. Modifying factors: The symptoms are alleviated by nothing. the symptoms are aggravated by nothing. The patient has not experienced similar symptoms in the past. Historical: - Allergies: 01:07 pollen extracts; ak1 - Home Meds: 01:07 aspirin 325 mg Oral tab once daily [Active]; clopidogrel 75 mg Oral tab 1 tab once ak1 daily [Active]; 01:30 metoprolol tartrate 25 mg oral tab 1.5 tabs 2 times per day [Active]; Novolog 10 units ak1 three times daily with use of slide scale with each meal. Sub-Q soln 6 unit three times a day [Active]; simvastatin 80 mg oral tab daily [Active]; Tresiba FlexTouch U-100 100 unit/mL (3 mL) subcutaneous inpn 50 unit daily [Active]; gabapentin 300 mg oral cap 1 cap daily [Active]; Vitamin C 500 mg Oral cpER [Active]; Dulcolax (bisacodyl) 5 mg Oral TbEC 1 tab [Active]; sertraline 25 mg oral tab 1 tab once daily [Active]; - PMHx: 01:07 colon cancer; TIA; Hypertension; Hyperlipidemia; Diabetes - IDDM; CVA; ak1 - PSHx: 01:07 colon cancer; Cholecystectomy; Appendectomy; Heart stents; ak1 - Immunization history:: Adult Immunizations unknown. - Ebola Screening: : No symptoms or risks identified at this time. - Social history:: Smoking status: unknown. ROS: 02:22 Constitutional: Negative for fever, chills, and weight loss, Eyes: Negative for injury, tw4 pain, redness, and discharge, Neck: Negative for injury, pain, and swelling, Respiratory: Negative for shortness of breath, cough, wheezing, and pleuritic chest pain, Abdomen/GI: Negative for abdominal pain, nausea, vomiting, diarrhea, and constipation, Back: Negative for injury and pain, MS/Extremity: Negative for injury and deformity. 02:22 Cardiovascular: Positive for chest pain, Negative for edema, orthopnea, palpitations. Exam: 02:22 Constitutional: This is a well developed, well nourished patient who is awake, alert, tw4 and in no acute distress. Head/Face: Normocephalic, atraumatic. Chest/axilla: Normal chest wall appearance and motion. Nontender with no deformity. No lesions are appreciated. Cardiovascular: Regular rate and rhythm with a normal S1 and S2. No gallops, murmurs, or rubs. Normal PMI, no JVD. No pulse deficits. Respiratory: Lungs have equal breath sounds bilaterally, clear to auscultation and percussion. No rales, rhonchi or wheezes noted. No increased work of breathing, no retractions or nasal flaring. Abdomen/GI: Soft, non-tender, with normal bowel sounds. No distension or tympany. No guarding or rebound. No evidence of tenderness throughout. Back: No spinal tenderness. No costovertebral tenderness. Full range of motion. MS/ Extremity: Pulses equal, no cyanosis. Neurovascular intact. Full, normal range of motion. Neuro: Awake and alert, GCS 15, oriented to person, place, time, and situation. Cranial nerves II-XII grossly intact. Motor strength 5/5 in all extremities. Sensory grossly intact. Cerebellar exam normal. Normal gait. Vital Signs: 00:40 BP 149 / 77; Pulse 114; Resp 30; Temp 97.7(O); Pulse Ox 100% on R/A; Weight 116.12 kg ak1 (R); Height 6 ft. 2 in. (187.96 cm) (R); Pain 7/10; 01:14 BP 142 / 94; Pulse 108; Resp 22; Pulse Ox 100% on 2 lpm NC; ak1 02:34 BP 149 / 96; Pulse 103; Resp 18; Pulse Ox 99% on 2 lpm NC; ak1 00:40 Body Mass Index 32.87 (116.12 kg, 187.96 cm) ak1 MDM: 00:53 Patient medically screened. tw4 03:26 Differential diagnosis: abnormal EKG, acute myocardial infarction, acute pericarditis, tw4 coronary artery disease chest wall pain, congestive heart failure pulmonary embolus, stable angina, thoracic aortic disection. NAIMA Risk Score: 1 - patient's age is greater or equal to 65 years, 1 - Three or more CAD risk factors, 1- Known CAD, 1 - ASA use in past 7 days, 1 - Recent [<24hrs] Severe Angina, TOTAL SCORE = 5. Data reviewed: vital signs, nurses notes. Data interpreted: Pulse oximetry: Interpretation: normal. Counseling: I had a detailed discussion with the patient and/or guardian regarding: the historical points, exam findings, and any diagnostic results supporting the discharge/admit diagnosis, radiology results. Physician consultation: Nick Charles MD regarding admission, to the telemetry unit. patient's condition, and will see patient in inpatient room. Admission orders: after a detailed discussion of the patient's condition and case, the admit orders are written by me. 10/28 00:54 Order name: Basic Metabolic Panel 10/28 00:54 Order name: CBC with Diff 10/28 00:54 Order name: LFT's 10/28 00:54 Order name: Magnesium; Complete Time: 02:55 tw4 10/28 02:55 Interpretation: Within normal limits: MG 1.8. 10/28 00:54 Order name: NT PRO-BNP; Complete Time: 02:55 4 10/28 02:55 Interpretation: Within normal limits: NT PRO-BNP 67. 10/28 00:54 Order name: PT-INR 10/28 00:54 Order name: Troponin (emerg Dept Use Only) 10/28 00:55 Order name: Basic Metabolic Panel; Complete Time: 02:54 EDMS 10/28 02:55 Interpretation: Normal except: CRE 1.95; BUN 34; GFR 33; GLUC 435; CO2 16. tw4 10/28 00:55 Order name: CBC with Automated Diff EDMS 10/28 00:55 Order name: Liver (Hepatic) Function; Complete Time: 02:55 EDMS 10/28 02:55 Interpretation: Normal except: ALK 129; GLOB 4.1; A/G 0.8. tw4 10/28 03:27 Order name: Basic Metabolic Panel [facility] 10/28 03:27 Order name: Basic Metabolic Panel [facility] 10/28 03:27 Order name: Troponin I [facility] 10/28 03:27 Order name: Troponin I [facility] 10/28 00:54 Order name: XRAY Chest (1 view) 10/28 00:54 Order name: EKG; Complete Time: 00:56 10/28 00:54 Order name: Cardiac monitoring; Complete Time: 01:24 10/28 00:54 Order name: EKG - Nurse/Tech; Complete Time: 01:25 10/28 00:54 Order name: IV Saline Lock; Complete Time: 01:25 10/28 00:54 Order name: Labs collected and sent; Complete Time: 01:25 10/28 03:28 Order name: EKG Electrocardiogram [facility] 10/28 03:28 Order name: EKG Electrocardiogram [facility] 10/28 03:28 Order name: EKG Electrocardiogram [facility] 10/28 03:28 Order name: EKG Electrocardiogram [facility] 10/28 03:28 Order name: Troponin I [facility] 10/28 00:54 Order name: O2 Per Protocol; Complete Time: 01:25 10/28 00:54 Order name: O2 Sat Monitoring; Complete Time: : EC:40 Rate is 112 beats/min. Rhythm is regular. MT interval is normal. QRS interval is tw4 normal. QT interval is normal. No Q waves. T waves are Normal. No ST changes noted. Clinical impression: Abnormal EKG without significant change and Sinus tachycardia. Interpreted by me. Reviewed by me. Administered Medications: 01:13 Drug: Zofran 4 mg Route: IVP; Site: left antecubital; ak1 01:34 Follow up: Response: No adverse reaction ak1 01:14 Drug: morphine 4 mg Route: IVP; Site: left antecubital; ak1 01:33 Follow up: Response: No adverse reaction; Pain is unchanged, physician notified ak1 01:55 Drug: morphine 2 mg Route: IVP; Site: left antecubital; ak1 03:40 Follow up: Response: No adverse reaction ak1 03:06 Drug: Insulin Regular Human 8 units {Co-Signature: cc3 (Vicki Gonzalez).} Route: IVP; ak1 Site: left forearm; 03:40 Follow up: Response: No adverse reaction ak1 Disposition: 10/28/18 02:53 Hospitalization ordered by Nick Charles for Observation. Preliminary diagnosis is Angina pectoris, unspecified. - Bed requested for Telemetry/MedSurg (observation). - Status is Observation. ak1 - Condition is Stable. - Problem is an ongoing problem. - Symptoms have improved. UTI on Admission? No Signatures: Dispatcher [employer] [facility] Cassandra Howard RN RN ak1 Bridgett Malave RN RN Francisco Camacho MD MD tw4 Vicki Gonzalez cc3 Corrections: (The following items were deleted from the chart) 01:30 01:07 Home Meds: Melatonin Oral; ak1 ak1 01:30 01:07 Home Meds: metoprolol tartrate 37.5 mg Oral tab 2 times per day; ak1 ak1 01:30 01:07 Home Meds: Novolog 100 unit/mL Sub-Q soln 6 unit three times a day; ak1 ak1 01:30 01:07 Home Meds: simvastatin 40 mg Oral tab 1 tab once daily; ak1 ak1 01:30 01:07 Home Meds: Tresiba FlexTouch U-100 100 unit/mL (3 mL) subcutaneous inpn 100 unit ak1 daily; ak1 02:20 00:56 Chest For PE Angio+CT.RAD.BRZ ordered. [facility] EDPR 03:46 02:53 Hospitalization Ordered by Nick Charles MD for Observation. Preliminary diagnosis cg is Angina pectoris, unspecified. Bed requested for Telemetry/MedSurg (observation). Status is Observation. Condition is Stable. Problem is an ongoing problem. Symptoms have improved. UTI on Admission? No. tw4 04:53 03:46 10/28/2018 02:53 Hospitalization Ordered by Nick Charles MD for Observation. ak1 Preliminary diagnosis is Angina pectoris, unspecified. Bed requested for Telemetry/MedSurg (observation). Status is Observation. Condition is Stable. Problem is an ongoing problem. Symptoms have improved. UTI on Admission? No. cg
--- NOTE | 2018-10-28 02:54 | ER ---
Nurse's Notes [facility] Name: Robb Pennington Age: 78 yrs Sex: Male : 1940 Arrival Date: 10/28/2018 Time: 00:51 Bed 3 Private MD: Diagnosis: Angina pectoris, unspecified Presentation: 10/28 00:40 Presenting complaint: EMS states: pt was at a wedding, had a large shrimp dinner c/o ak1 nausea and heartburn. pt had tums began vomiting. pt c/o chest pain that radiates to left arm. pt with hx [place] and 5 stents. pt took 324 aspirin this morning. pt with 20g IV to left forearm. pt stated pain began at 2230. Transition of care: patient was not received from another setting of care. Onset of symptoms was October 27, 2018. Risk Assessment: Do you want to hurt yourself or someone else? Patient reports no desire to harm self or others. Initial Sepsis Screen:. Care prior to arrival: Medication(s) given: zofran 4 mg, pt refused Nitro per EMS. 00:40 Acuity: LUDA 2 ak1 00:40 Method Of Arrival: EMS: [facility] ak1 Triage Assessment: 00:40 General: Appears uncomfortable, obese, Behavior is cooperative. Pain: Complains of pain ak1 in chest and left arm Pain radiates to left arm Pain began 3 hours ago. EENT: No signs and/or symptoms were reported regarding the EENT system. Neuro: No deficits noted. Cardiovascular: Reports chest pain, diaphoresis, nausea, shortness of breath, vomiting, Heart tones S1 S2 present Rhythm is sinus tachycardia. Respiratory: Reports shortness of breath pt placed on oxygen 2L via NC. GI: Abdomen is round Reports nausea, vomiting. : No signs and/or symptoms were reported regarding the genitourinary system. Derm: Skin is diaphoretic, Skin is pale, Skin temperature is cool. Musculoskeletal: No signs and/or symptoms reported regarding the musculoskeletal system. Historical: - Allergies: 01:07 pollen extracts; ak1 - Home Meds: 01:07 aspirin 325 mg Oral tab once daily [Active]; clopidogrel 75 mg Oral tab 1 tab once ak1 daily [Active]; :30 metoprolol tartrate 25 mg oral tab 1.5 tabs 2 times per day [Active]; Novolog 10 units ak1 three times daily with use of slide scale with each meal. Sub-Q soln 6 unit three times a day [Active]; simvastatin 80 mg oral tab daily [Active]; Tresiba FlexTouch U-100 100 unit/mL (3 mL) subcutaneous inpn 50 unit daily [Active]; gabapentin 300 mg oral cap 1 cap daily [Active]; Vitamin C 500 mg Oral cpER [Active]; Dulcolax (bisacodyl) 5 mg Oral TbEC 1 tab [Active]; sertraline 25 mg oral tab 1 tab once daily [Active]; - PMHx: 01:07 colon cancer; TIA; Hypertension; Hyperlipidemia; Diabetes - IDDM; CVA; ak1 - PSHx: 01:07 colon cancer; Cholecystectomy; Appendectomy; Heart stents; ak1 - Immunization history:: Adult Immunizations unknown. - Ebola Screening: : No symptoms or risks identified at this time. - Social history:: Smoking status: unknown. Screenin:34 Abuse screen: Denies threats or abuse. Denies injuries from another. Nutritional ak1 screening: No deficits noted. Tuberculosis screening: No symptoms or risk factors identified. Fall Risk None identified. Assessment: 01:14 General: Appears uncomfortable, obese, see triage assessment. ak1 02:33 Reassessment: Patient appears in no apparent distress at this time. Patient states ak1 feeling better. Patient states symptoms have improved. Pain: Goal of pain control is to sleep comfortably. Vital Signs: 00:40 BP 149 / 77; Pulse 114; Resp 30; Temp 97.7(O); Pulse Ox 100% on R/A; Weight 116.12 kg ak1 (R); Height 6 ft. 2 in. (187.96 cm) (R); Pain 7/10; 01:14 BP 142 / 94; Pulse 108; Resp 22; Pulse Ox 100% on 2 lpm NC; ak1 02:34 BP 149 / 96; Pulse 103; Resp 18; Pulse Ox 99% on 2 lpm NC; ak1 00:40 Body Mass Index 32.87 (116.12 kg, 187.96 cm) ak1 ED Course: 00:40 Arm band placed on Patient placed in an exam room, on a stretcher, on oxygen, on ak1 cardiac cath lab radiology technologist, on pulse oximetry, Patient notified of wait time. 00:46 Patient has correct armband on for positive identification. Placed in gown. Bed in low ak1 position. Call light in reach. Side rails up X2. Adult w/ patient. laboratory monitor on. Pulse ox on. NIBP on. 00:46 Maintain EMS IV. Dressing intact. Good blood return noted. Site clean \T\ dry. Gauge \T\ ak 1 site: 20g left forearm. . Oxygen administration via nasal cannula \T\ 2L/min. 00:51 Patient arrived in ED. ds1 00:53 Francisco Nickerson MD is Attending Physician. tw4 00:59 Cassandra Howard, SUSSY is Primary Nurse. ak1 01:05 Triage completed. ak1 01:14 X-ray completed. Portable x-ray completed in exam room. Patient tolerated procedure kw well. 01:15 XRAY Chest (1 view) In Process Unspecified. EDMS 01:25 Basic Metabolic Panel Sent. ak1 01:46 Notified ED physician of a critical lab result(s). Glucose 435. lp1 02:53 Nick Charles MD is Hospitalizing Provider. tw4 04:52 No provider procedures requiring assistance completed. Patient admitted, IV remains in ak1 place. Administered Medications: 01:13 Drug: Zofran 4 mg Route: IVP; Site: left antecubital; ak1 01:34 Follow up: Response: No adverse reaction ak1 01:14 Drug: morphine 4 mg Route: IVP; Site: left antecubital; ak1 01:33 Follow up: Response: No adverse reaction; Pain is unchanged, physician notified ak1 01:55 Drug: morphine 2 mg Route: IVP; Site: left antecubital; ak1 03:40 Follow up: Response: No adverse reaction ak1 03:06 Drug: Insulin Regular Human 8 units {Co-Signature: cc3 (Vicki Gonzalez).} Route: IVP; ak1 Site: left forearm; 03:40 Follow up: Response: No adverse reaction ak1 Outcome: 02:53 Decision to Hospitalize by Provider. tw4 04:52 Admitted to Tele accompanied by tech, family with patient, via stretcher, room 403, ak1 with oxygen, with chart, Report called to Shemar Rashid RN 04:52 Condition: stable 04:52 Instructed on the need for admit. 04:53 Patient left the ED. ak1 Signatures: Dispatcher [employer] EDMS Nicole Branham ds1 Hemalatha Mazariegos Laura, RN RN lp1 Cassandra Howard RN RN ak1 Francisco Nickerson MD MD tw4 Vicki Gonzalez cc3 Corrections: (The following items were deleted from the chart) 01:07 Home Meds: Melatonin Oral; ak1 ak1 01: Home Meds: metoprolol tartrate 37.5 mg Oral tab 2 times per day; ak1 ak1 :07 Home Meds: Novolog 100 unit/mL Sub-Q soln 6 unit three times a day; ak1 ak1 : Home Meds: simvastatin 40 mg Oral tab 1 tab once daily; ak1 ak1 01:07 Home Meds: Tresiba FlexTouch U-100 100 unit/mL (3 mL) subcutaneous inpn 100 unit ak1 daily; ak1
[2018-10-28] MEDS ORDERED: INSULIN -REGULAR HUMAN 50 UNIT/0.5 ML ML ONE (03:14)
[2018-10-28] MEDS ORDERED: ACETAMINOPHEN 500 MG TAB PO PRN (03:24)
[2018-10-28 06:25] LABS: Urine Appearance CLEAR; Urine Bilirubin NEGATIVE (NEG); Urine Blood NEGATIVE (NEG); Urine Color YELLOW; Urine Glucose 3+ (NEG); Urine Protein NEGATIVE (NEG); Urine Specific Gravity >=1.030 (1.005-1.030); Urine Urobilinogen 0.2 mg/dL (0.2-1.0)
[2018-10-28 06:35] LABS: Urine Microscopic Reflex NO UMIC
[2018-10-28] MEDS: ASPIRIN EC 81 MG TAB PO SCH (07:12)
[2018-10-28] MEDS: HYDROMORPHONE HCL 1 MG/ML INJ IV PRN ×2 (07:13→20:25)
[2018-10-28] MEDS ORDERED: HYDROMORPHONE HCL 2 MG/ML inj ONE (07:18)
[2018-10-28] MEDS: Enoxaparin 120 MG/0.8 ML SYR SQ SCH ×2 (07:43→21:22)
[2018-10-28] MEDS ORDERED: PNEUMOCOCCAL VACCINE 0.5 ML IMVAC ONE (08:00)
[2018-10-28] MEDS: CLOPIDOGREL 75 MG TABLET PO SCH (09:44)
[2018-10-28] MEDS: METOPROLOL TAR 50 MG TAB PO SCH ×2 (09:45→21:23)
--- NOTE | 2018-10-28 09:51 | RAD REPORT ---
EXAM DESCRIPTION: Johnathan Single View10/28/2018 1:15 am CLINICAL HISTORY: Chest pain COMPARISON: October 2017 FINDINGS: The lungs appear clear of acute infiltrate. The heart is normal size A central venous line has its tip in the superior vena cava IMPRESSION: No acute abnormalities displayed
[2018-10-28] MEDS ORDERED: MAGNESIUM HYDROXIDE 8% 30 ML PO PRN (12:26)
[2018-10-28] MEDS ORDERED: GLUCAGON 1 MG/VIAL IM PRN (12:40)
[2018-10-28] MEDS ORDERED: D50W 25 GM/50 ML SYRINGE IV PRN (12:40)
--- NOTE | 2018-10-28 12:53 | CON ---
Date of Consultation: 10/28/2018 History Of Present Illness: Mr. Pennington started having chest pain last night after the graduation makeda ebration and then a large meal. He took several doses of Protonix trying to make it go away, did not work, came to the ER. His chest pain was relieved with narcotics. He refused to take a nitroglycer in. He was not given any of his usual home medications and no Lovenox and this morning started havin g more chest pain. There were no ST elevation or other EKG changes to suggest an acute coronary synd nancy, his troponins are up, and his chest pain has not gone away with Dilaudid. It is markedly dimin ished. He is not in any distress. He has a history of several coronary stents in his LAD. He has C AD. He has underlying diabetes, hypertension, dyslipidemia, and colon cancer with resection. No german dence of disease and his blood sugars have been very high after the large meal he ate, which was weig claudio out of his usual routine. Physical Examination: General: He is 6 feet 2 inches, 258 pounds. Mild distress. Alert, oriented, pleasant, cooperative. Lungs: Do not reveal crackles. Heart: No significant murmur. Abdomen: Soft. Extremities: Diminished distal pulses. Trace edema. His EKG shows old anterior OK, sinus tach. I think he should get beta-blockers, heparin, or Lovenox. Aspirin and Plavix would be in the ICU. We could probably get away with giving him a little intrav enous nitroglycerin, but he would refuse sublingual nitroglycerin because of him hypotensive once, so will manage him medically until we can do a cardiac cath on October 30. FINESSE/YASMANI Voice ID: [id number] Report ID: [id number]
[2018-10-28] MEDS: INSULIN -REGULAR HUMAN 50 UNIT/0.5 ML ML SQ SCH ×3 (13:11→21:24)
--- NOTE | 2018-10-28 13:38 | HP ---
Date of Admission: 10/28/2018 History Of Present Illness: A 78-year-old male with a history of multiple medical problems including type 2 diabetes. He had dinner last night and he was sitting in his recliner when he felt significa nt chest pain described as chest pressure/ache. It was to him very severe. It radiated to both his shoulders, and he vomited with that. He was brought to the emergency room. His troponin was high an d the patient was admitted to the ICU for acute myocardial infarction. Review of Systems: Respiratory: No complaints. Cardiovascular: As above. Gastrointestinal: As above. Neurological: No complaints. Genitourinary: No complaints. Skeletomuscular: No complaints. Past Medical History: 1.Type 2 diabetes. 2.Hypertension. 3.Hyperlipidemia. 4.History of a CVA in the past. No residual weakness and TIAs. 5.History of colon cancer. Past Surgical History: The patient has had cholecystectomy and appendectomy. The patient also with coronary artery disease. He had cardiac coronary stents in the past. Social History: No smoking, alcohol, or drug abuse history. Family History: Noncontributing. Medications: Include aspirin 325 mg p.o. daily, Plavix 75 mg p.o. daily, NovoLog 10 units t.i.d. q.a .c., and Tresiba 50 units subcu daily, Lopressor 37.5 mg p.o. b.i.d., Neurontin 600 mg p.o. daily, Zo loft 50 mg p.o. at bedtime, and simvastatin 80 mg p.o. daily. Allergies: POLLEN EXTRACT. Physical Examination: Vital Signs: Blood pressure 125/70, pulse 95, temperature 97. Heart: Regular rate and rhythm. Chest: Clear to auscultation. Abdomen: Soft, nontender. No hepatosplenomegaly. Bowel sounds normoactive. Extremities: No edema. No cyanosis. Peripheral pulses are felt. Neurological: Alert, oriented, nonfocal. Grossly intact. Laboratory Data: The patient's chest x-ray, no acute pathology. CBC noted. PT/INR noted. Chemistr y; BUN 34, creatinine 1.95, GFR 33. Blood sugar 300. Troponin 8.12, went up to 13.70. Urinalysis n oted. Assessment/plan: Acute myocardial infarction. I think it is subendocardial. Cardiology has been co nsulted and the plan is to do heart catheterization on Tuesday. Meanwhile, the patient is admitted to the ICU. We will put him on aspirin and Plavix and Lovenox, keep him on his home medications. We w ill monitor his blood sugar and put him on regular insulin sliding scale for his diabetes. The patie nt has chronic renal insufficiency from diabetes. We will monitor that with his chemistry. Look ord ers for details. MFS/MODL Voice ID: [id number]
--- NOTE | 2018-10-28 14:25 | EKG ---
Test Date: 2018-10-28 Test Time: 00:41:24 Health Coordinator: MARTHA MEASUREMENT RESULTS: Intervals: Rate: 112 NC: 144 QRSD: 118 QT: 356 QTc: 485 [place]: P: NC: 144 QRS: -74 T: 77 INTERPRETIVE STATEMENTS: Sinus tachycardia Left axis deviation Incomplete right bundle branch block Abnormal ECG Compared to ECG 10/21/2017 10:50:08 Incomplete right bundle-branch block now present Sinus rhythm no longer present Electronically Signed On 10-28-18 14:24:51 CDT by Jairo Napier
[2018-10-28] MEDS: SERTRALINE HCL 50 MG TAB PO SCH (21:22)
[2018-10-28] MEDS: ATORVASTATIN 40 MG TAB PO SCH (21:23)
--- NOTE | 2018-10-29 06:21 | EKG ---
Test Date: 2018-10-28 Test Time: 07:07:21 Transit Mechanic: EUFEMIA MEASUREMENT RESULTS: Intervals: Rate: 97 MT: 216 QRSD: 116 QT: 372 QTc: 472 [place]: P: 57 MT: 216 QRS: -77 T: 91 INTERPRETIVE STATEMENTS: Sinus rhythm with 1st degree AV block Left axis Nonspecific T wave abnormality Prolonged QT Abnormal ECG Compared to ECG 10/28/2018 00:41:24 First degree AV block now present T-wave abnormality now present Prolonged QT interval now present Sinus tachycardia no longer present Incomplete right bundle-branch block no longer present Electronically Signed On 10-29-18 06:21:01 CDT by Jairo Napier
[2018-10-29 06:31] LABS: Absolute Monocytes 0.9 K/uL (0.1-1.3); Absolute Neutrophil 7.7 K/uL (1.8-8.0); Eosinophils % 1.4 % (0-4.4); Hematocrit 47.3 % (39.6-49.0); Lymphocytes % 18.8 % (15.3-44.8); RBC Red Blood Cell Count 5.26 M/uL (4.33-5.43)
[2018-10-29 06:54] LABS: Potassium 5.2 mmol/L (3.5-5.1)
[2018-10-29] MEDS: Enoxaparin 120 MG/0.8 ML SYR SQ SCH (08:10)
[2018-10-29] MEDS: CLOPIDOGREL 75 MG TABLET PO SCH (08:10)
[2018-10-29] MEDS: ASPIRIN EC 81 MG TAB PO SCH (08:10)
[2018-10-29] MEDS: GABAPENTIN 300 MG CAP PO SCH (08:11)
[2018-10-29] MEDS: METOPROLOL TAR 50 MG TAB PO SCH ×2 (08:11→21:55)
[2018-10-29] MEDS: INSULIN -REGULAR HUMAN 50 UNIT/0.5 ML ML SQ SCH ×4 (08:12→21:54)
--- NOTE | 2018-10-29 16:35 | PN ---
The patient has no new complaint. No chest pain. No increased shortness of breath. He is comfortab le. Objective: VITAL SIGNS: Blood pressure 112/70, pulse 80, temperature 98. Heart: Regular rate and rhythm. Chest: Clear to auscultation. Abdomen: Soft, benign. Neurological examination: Alert, oriented. Grossly intact. Extremities: No edema. No cyanosis. Peripheral pulses are felt. Laboratory Data: CBC noted. Chemistry; BUN 31, creatinine 1.66. Blood sugar, fingerstick, noted in the 300s. Assessment And Plan: 1.Acute non-Q-wave subendocardial and myocardial infarction. The patient is clinically stable. Anand eduled for heart catheterization tomorrow meanwhile continue current treatment. 2.Type 2 diabetes mellitus. We will continue the patient on regular insulin sliding scale. Monitor his blood sugars. 3.Rest of his medical problems are stable. Continue current treatment. MFS/MODL Voice ID: [id number] Report ID: [id number]
--- NOTE | 2018-10-29 17:05 | PN ---
Mr. Pennington is no longer having angina, has stable hemoglobin and hematocrit. Creatinine is 1.66. Hi s troponin highest is at 13.7. He will undergo cardiac cath and possible stent tomorrow. We will at tempt a radial approach first because of his history of peripheral vascular disease. The patient see ms to understand the procedure, potential benefits, indications, risks, and agrees to proceed. FINESSE/YASMANI Voice ID: [id number] Report ID: [id number]
[2018-10-29] MEDS ORDERED: ZOLPIDEM TARTRATE 5 MG TABLET PO SCH (21:00)
[2018-10-29] MEDS: SERTRALINE HCL 50 MG TAB PO SCH (21:55)
[2018-10-29] MEDS: ATORVASTATIN 40 MG TAB PO SCH (21:55)
[2018-10-29] MEDS: ACETYLCYST 20% 800 MG/4 ML VIAL PO SCH (21:57)
[2018-10-30 05:15] VITALS: BMI 33.2
[2018-10-30 06:07] LABS: Absolute Lymphocytes (CBC) 2.7 K/uL (0.7-4.9); Absolute Monocytes 0.8 K/uL (0.1-1.3); Absolute Neutrophil 5.3 K/uL (1.8-8.0); Basophils % 0.9 % (0-1.3); Lymphocytes % 29.6 % (15.3-44.8); MPV 9.1 fL (7.6-11.3); Monocytes % 8.7 % (3.3-12.3); RBC Red Blood Cell Count 4.85 M/uL (4.33-5.43)
[2018-10-30] MEDS: INSULIN -REGULAR HUMAN 50 UNIT/0.5 ML ML SQ SCH ×2 (07:30→12:01)
[2018-10-30] MEDS: METOPROLOL TAR 50 MG TAB PO SCH (08:19)
[2018-10-30] MEDS: CLOPIDOGREL 75 MG TABLET PO SCH (08:19)
[2018-10-30] MEDS: ACETYLCYST 20% 800 MG/4 ML VIAL PO SCH (08:19)
[2018-10-30] MEDS: ASPIRIN EC 81 MG TAB PO SCH (08:19)
[2018-10-30] MEDS ORDERED: NICARDIPINE HCL 25 MG/10 ML IV ONE (08:52)
[2018-10-30] MEDS ORDERED: HEPARIN 5000 UNIT/ML 1 ML VIAL ONE (08:52)
[2018-10-30] MEDS ORDERED: HEPA 1000U/500MLS 2,000 UNIT/1,000 ML BAG IV ONE (08:52)
[2018-10-30] MEDS ORDERED: NITROGLYCERIN 100 MCG/ML SYR (for cath lab use only) IV ONE (08:52)
[2018-10-30] MEDS ORDERED: NITROGLYCERIN/D5W 25 MG/250 ML BTL IV ONE (08:53)
[2018-10-30] MEDS: GABAPENTIN 300 MG CAP PO SCH (09:00)
[2018-10-30] MEDS ORDERED: NA CHLORIDE 0.9% 500 ML ONE (09:22)
[2018-10-30] MEDS ORDERED: MIDAZOLAM HCL 2 MG/2 ML INJ ONE (09:27)
[2018-10-30] MEDS ORDERED: NA CHLORIDE 0.9% 0 ML ONE (09:28)
[2018-10-30] MEDS ORDERED: ATROPINE SULF 1 MG/10 ML SYR IV ONE (09:28)
[2018-10-30] MEDS ORDERED: FENTANYL CITR 100 MCG/2 ML ONE (09:28)
[2018-10-30] MEDS ORDERED: HEPARIN/D5W 25,000 UNIT/500 ML BAG IV SCH (10:00)
[2018-10-30 12:22] LABS: Protime INR 1.17
[2018-10-30 12:25] VITALS: O2SAT 95
[2018-10-30] MEDS ORDERED: GABAPENTIN 100 MG CAP ONE (13:27)
--- NOTE | 2018-10-30 15:11 | EKG ---
Test Date: 2018-10-30 Test Time: 12:54:28 Spindle Setter: KYRA MEASUREMENT RESULTS: Intervals: Rate: 79 IN: QRSD: 114 QT: 480 QTc: 550 [place]: P: IN: QRS: -77 T: 229 INTERPRETIVE STATEMENTS: Atrial fibrillation Left axis deviation ST & T wave abnormality, consider inferior ischemia or digitalis effect ST & T wave abnormality, consider anterolateral ischemia or digitalis effect Prolonged QT Abnormal ECG Compared to ECG 10/28/2018 07:07:21 Left-axis deviation now present ST (T wave) deviation now present Possible ischemia now present Sinus rhythm no longer present First degree AV block no longer present T-wave abnormality no longer present Electronically Signed On 10-30-18 15:10:43 CDT by Jairo Napier
[2018-10-30 15:34] VITALS: BP 119/68; TEMP 98.1
--- NOTE | 2018-10-30 15:58 | PN ---
Subjective: The patient has had his heart catheterization. He is feeling well. No chest pain. No complaints. Objective: Vital Signs: Blood pressure 110/50, pulse 74, temperature 97.9. Heart: Regular rate and rhythm. Chest: Clear to auscultation. Abdomen: Soft, benign. Neurological examination: Alert, oriented. Grossly intact. Extremities: No edema. No cyanosis. Peripheral pulses are felt. Laboratory Data: CBC, noted. Chemistry; BUN 32, creatinine 1.49, and GFR 46. Blood sugar fingersti cks noted in the 300. Heart catheterization done. Assessment And Plan: 1.Coronary artery disease. Preliminary report from Cardiology that the patient is going to need [facility] surgery and Dr. Napier is planning to transfer him to [facility]. 2.Type 2 diabetes. We will continue the patient on a sliding scale. 3.Chronic renal insufficiency, slightly better. Rest of his medical problems are stable. MFS/MODL Voice ID: [id number] Report ID: [id number]
--- NOTE | 2018-10-30 17:04 | OP ---
Surgeon: Jairo Napier MD Procedures: Left heart catheterization, coronary left ventricular angiography. Findings: Left main coronary stenosis as well as ostium with LAD and the circumflex. Depressed left ventricular ejection fraction 35%. Elevated left ventricular end-diastolic pressure at 18. The collin mmendation is for bypass surgery. Procedure In Detail: The patient was brought to the cardiac labels molder in a fasting state. Right radi al approach was used. Right radial artery was anesthetized with 1% lidocaine DICTATION ENDS HERE. FINESSE/YASMANI Voice ID: [id number] Report ID: [id number]
--- NOTE | 2018-10-30 17:04 | OP ---
Surgeon: Jairo Napier MD Procedures: Left heart catheterization, coronary left ventricular angiography. Findings: The patient's right coronary artery is diffusely moderately diseased. No significant sten osis. The left main has a 99% stenosis, it includes the ostium of the LAD, ostium of the circumflex. The LAD and circumflex themselves are diffusely diseased. Left ventricular end-diastolic pressure was normal at 11. The ejection fraction is about 35%, and there is hypokinesis of the apex, akinesis of the anterolateral wall. Our recommendation is that he undergo bypass surgery. Procedure In Detail: The patient had a non-ST elevation myocardial infarction. He gave informed con sent, was brought to the cardiac dental lab technician in a fasting state, sedated with Versed and fentanyl. Prep ared and draped in usual sterile fashion. Right radial approach was used. The tissues over the mallory ry were anesthetized with 1% lidocaine. The artery was entered using a 21-gauge needle, cannulated w ith a 0.021 inch diameter guidewire, 6-[place] Terumo radial sheath was placed, flushed, radial cockta il given consisting of nicardipine, heparin, nitroglycerin. He required IV bolus of 100 cc with norm al saline to support his blood pressure after the nicardipine. A TIG catheter was guided into the as cending aorta using fluoroscopy and a Revision3 Glidewire with a short radius J-tip. We were able to us e the same catheter to angiogram left ventricle, right coronary, left coronary. At the end of the pr ocedure the catheter was withdrawn over a J-wire. Sheath flushed, removed and the arteriotomy closed with a TR band. Complications: None. Estimated Blood Loss: 5 cc. He will go back to ICU. SH/MODL Voice ID: [id number] Report ID: [id number]
== END 2018-10-30 15:34 | disposition short-term general hospital (02) | DRG 282 ==
LOC: ER 00:49 → ERHOLD 03:50 → 4TH 04:21 → 3RD-ICU 07:58 → OBSVTOIN 09:24
PROVIDERS: ADMIT Internal Medicine; ATTEND Internal Medicine
PROC: 4A023N7 Measurement of Cardiac Sampling and Pressure, Left Heart, Percutaneous Approach (ICD-10-PCS; principal; 2018-10-30)
PROC: B205YZZ Plain Radiography of Left Heart using Other Contrast (ICD-10-PCS; 2018-10-30)
DX: I21.4 Non-ST elevation (NSTEMI) myocardial infarction (principal); I25.10 Atherosclerotic heart disease of native coronary artery without angina pectoris; E78.5 Hyperlipidemia, unspecified; I12.9 Hypertensive chronic kidney disease with stage 1 through stage 4 chronic kidney disease, or unspecified chronic kidney disease; E11.22 Type 2 diabetes mellitus with diabetic chronic kidney disease; N18.9 Chronic kidney disease, unspecified; Z95.5 Presence of coronary angioplasty implant and graft; Z86.73 Personal history of transient ischemic attack (TIA), and cerebral infarction without residual deficits; Z85.038 Personal history of other malignant neoplasm of large intestine
CPT/HCPCS: 36415; 71045; 80048; 80076; 81003; 82962; 83735; 83880; 84484; 85025; 85610; 85730; 93005; 93458; 96374; 96375; 99285; C1893; G0378; J0583; J1170; J1644; J1650; J2250; J2270; J2405; J3010